=== PATIENT | female | born 1955 | race Native Hawaiian/Other Pacific Islander ===

== ENCOUNTER 2020-05-20 08:12 | Outpatient (CLI) | payer OTHER ==
[~2020-05-20] VITALS: Ht 157.5 cm; Wt 78.9 kg
== END 2020-05-20 19:08 | disposition home or self-care (01) ==
LOC: DIABINF 08:12
PROVIDERS: ATTEND Internal Medicine Endocrinology, Diabetes & Metabolism
DX: E11.65 Type 2 diabetes mellitus with hyperglycemia (principal); E11.42 Type 2 diabetes mellitus with diabetic polyneuropathy; I10 Essential (primary) hypertension; E78.2 Mixed hyperlipidemia; I25.10 Atherosclerotic heart disease of native coronary artery without angina pectoris; I73.89 Other specified peripheral vascular diseases; G89.4 Chronic pain syndrome; F41.1 Generalized anxiety disorder; F33.9 Major depressive disorder, recurrent, unspecified; M15.0 Primary generalized (osteo)arthritis; Z71.6 Tobacco abuse counseling; E66.8 Other obesity; Z68.31 Body mass index [BMI] 31.0-31.9, adult; K21.9 Gastro-esophageal reflux disease without esophagitis; Z95.1 Presence of aortocoronary bypass graft; I20.8 Other forms of angina pectoris
CPT/HCPCS: 82948; 96365; 96366; 96521; 99204; J1718; J1815

== ENCOUNTER 2020-05-21 07:41 | Outpatient (CLI) | payer OTHER ==
[~2020-05-21] VITALS: Ht 157.5 cm; Wt 78.9 kg
== END 2020-05-21 21:04 | disposition home or self-care (01) ==
LOC: DIABINF 07:41
PROVIDERS: ATTEND Internal Medicine Endocrinology, Diabetes & Metabolism
DX: E11.65 Type 2 diabetes mellitus with hyperglycemia (principal); E11.42 Type 2 diabetes mellitus with diabetic polyneuropathy; I10 Essential (primary) hypertension; E78.2 Mixed hyperlipidemia; I25.10 Atherosclerotic heart disease of native coronary artery without angina pectoris; I73.89 Other specified peripheral vascular diseases; G89.4 Chronic pain syndrome; F41.1 Generalized anxiety disorder; F33.9 Major depressive disorder, recurrent, unspecified; M15.0 Primary generalized (osteo)arthritis; Z71.6 Tobacco abuse counseling; E66.8 Other obesity; Z68.31 Body mass index [BMI] 31.0-31.9, adult; K21.9 Gastro-esophageal reflux disease without esophagitis; Z95.1 Presence of aortocoronary bypass graft; I20.8 Other forms of angina pectoris
CPT/HCPCS: 82948; 96365; 96366; 96521; 99214; J1718; J1815

== ENCOUNTER 2020-05-27 07:23 | Outpatient (CLI) | payer OTHER ==
[~2020-05-27] VITALS: Ht 157.5 cm; Wt 78.9 kg
== END 2020-05-27 19:38 | disposition home or self-care (01) ==
LOC: DIABINF 07:23
PROVIDERS: ATTEND Internal Medicine Endocrinology, Diabetes & Metabolism
DX: E11.65 Type 2 diabetes mellitus with hyperglycemia (principal); E11.42 Type 2 diabetes mellitus with diabetic polyneuropathy; I10 Essential (primary) hypertension; E78.2 Mixed hyperlipidemia; I25.118 Atherosclerotic heart disease of native coronary artery with other forms of angina pectoris; I73.89 Other specified peripheral vascular diseases; G89.4 Chronic pain syndrome; F41.1 Generalized anxiety disorder; F33.9 Major depressive disorder, recurrent, unspecified; M15.0 Primary generalized (osteo)arthritis; Z71.6 Tobacco abuse counseling; E66.8 Other obesity; Z68.31 Body mass index [BMI] 31.0-31.9, adult; K21.9 Gastro-esophageal reflux disease without esophagitis; Z95.1 Presence of aortocoronary bypass graft
CPT/HCPCS: 82948; 96365; 96366; 96521; 99214; J1718; J1815

== ENCOUNTER 2020-05-28 07:29 | Outpatient (CLI) | payer OTHER ==
[~2020-05-28] VITALS: Ht 157.5 cm; Wt 78.9 kg
== END 2020-05-28 20:57 | disposition home or self-care (01) ==
LOC: DIABINF 07:29
PROVIDERS: ATTEND Internal Medicine Endocrinology, Diabetes & Metabolism
DX: E11.65 Type 2 diabetes mellitus with hyperglycemia (principal); E11.42 Type 2 diabetes mellitus with diabetic polyneuropathy; I10 Essential (primary) hypertension; E78.2 Mixed hyperlipidemia; I25.118 Atherosclerotic heart disease of native coronary artery with other forms of angina pectoris; I73.89 Other specified peripheral vascular diseases; G89.4 Chronic pain syndrome; F41.1 Generalized anxiety disorder; F33.9 Major depressive disorder, recurrent, unspecified; M15.0 Primary generalized (osteo)arthritis; Z71.6 Tobacco abuse counseling; E66.8 Other obesity; Z68.31 Body mass index [BMI] 31.0-31.9, adult; K21.9 Gastro-esophageal reflux disease without esophagitis; Z95.1 Presence of aortocoronary bypass graft
CPT/HCPCS: 82948; 96365; 96366; 96521; 99214; J1718; J1815

== ENCOUNTER 2020-06-03 07:33 | Outpatient (CLI) | payer OTHER ==
[~2020-06-03] VITALS: Ht 157.5 cm; Wt 78.9 kg
== END 2020-06-03 19:22 | disposition home or self-care (01) ==
LOC: DIABINF 07:33
PROVIDERS: ATTEND Internal Medicine Endocrinology, Diabetes & Metabolism
DX: E11.65 Type 2 diabetes mellitus with hyperglycemia (principal); E11.42 Type 2 diabetes mellitus with diabetic polyneuropathy; I10 Essential (primary) hypertension; E78.2 Mixed hyperlipidemia; I25.118 Atherosclerotic heart disease of native coronary artery with other forms of angina pectoris; I73.89 Other specified peripheral vascular diseases; G89.4 Chronic pain syndrome; F41.1 Generalized anxiety disorder; F33.9 Major depressive disorder, recurrent, unspecified; M15.0 Primary generalized (osteo)arthritis; Z71.6 Tobacco abuse counseling; E66.8 Other obesity; Z68.31 Body mass index [BMI] 31.0-31.9, adult; K21.9 Gastro-esophageal reflux disease without esophagitis; Z95.1 Presence of aortocoronary bypass graft
CPT/HCPCS: 82948; 96365; 96366; 96521; 99214; J1718; J1815

== ENCOUNTER 2020-06-04 07:29 | Outpatient (CLI) | payer OTHER ==
[~2020-06-04] VITALS: Ht 157.5 cm; Wt 78.9 kg
== END 2020-06-04 20:12 | disposition home or self-care (01) ==
LOC: DIABINF 07:29
PROVIDERS: ATTEND Internal Medicine Endocrinology, Diabetes & Metabolism
DX: E11.65 Type 2 diabetes mellitus with hyperglycemia (principal); E11.40 Type 2 diabetes mellitus with diabetic neuropathy, unspecified; I10 Essential (primary) hypertension; E78.2 Mixed hyperlipidemia; I25.118 Atherosclerotic heart disease of native coronary artery with other forms of angina pectoris; I73.89 Other specified peripheral vascular diseases; G89.4 Chronic pain syndrome; F41.1 Generalized anxiety disorder; F33.9 Major depressive disorder, recurrent, unspecified; M15.0 Primary generalized (osteo)arthritis; Z71.6 Tobacco abuse counseling; E66.8 Other obesity; Z68.31 Body mass index [BMI] 31.0-31.9, adult; K21.9 Gastro-esophageal reflux disease without esophagitis; Z95.1 Presence of aortocoronary bypass graft
CPT/HCPCS: 82948; 96365; 96366; 96521; 99214; J1718; J1815

== ENCOUNTER 2020-06-11 07:37 | Outpatient (CLI) | payer OTHER ==
[~2020-06-11] VITALS: Ht 157.5 cm; Wt 78.9 kg
== END 2020-06-11 19:39 | disposition home or self-care (01) ==
LOC: DIABINF 07:37
PROVIDERS: ATTEND Internal Medicine Endocrinology, Diabetes & Metabolism
DX: E11.65 Type 2 diabetes mellitus with hyperglycemia (principal); E11.42 Type 2 diabetes mellitus with diabetic polyneuropathy; I10 Essential (primary) hypertension; E78.2 Mixed hyperlipidemia; I25.10 Atherosclerotic heart disease of native coronary artery without angina pectoris; I73.89 Other specified peripheral vascular diseases; F41.8 Other specified anxiety disorders; F32.89 Other specified depressive episodes; M15.0 Primary generalized (osteo)arthritis; Z71.6 Tobacco abuse counseling; Z68.31 Body mass index [BMI] 31.0-31.9, adult; Z95.1 Presence of aortocoronary bypass graft
CPT/HCPCS: 82948; 96365; 96366; 96521; 99214; J1815; J1817

== ENCOUNTER 2020-06-17 07:29 | Outpatient (CLI) | payer OTHER ==
[~2020-06-17] VITALS: Ht 157.5 cm; Wt 78.9 kg
== END 2020-06-17 21:23 | disposition home or self-care (01) ==
LOC: DIABINF 07:29
PROVIDERS: ATTEND Internal Medicine Endocrinology, Diabetes & Metabolism
DX: E11.65 Type 2 diabetes mellitus with hyperglycemia (principal); E11.42 Type 2 diabetes mellitus with diabetic polyneuropathy; I10 Essential (primary) hypertension; E78.2 Mixed hyperlipidemia; I25.118 Atherosclerotic heart disease of native coronary artery with other forms of angina pectoris; I73.89 Other specified peripheral vascular diseases; G89.4 Chronic pain syndrome; F41.1 Generalized anxiety disorder; F33.9 Major depressive disorder, recurrent, unspecified; M15.0 Primary generalized (osteo)arthritis; Z71.6 Tobacco abuse counseling; E66.8 Other obesity; Z68.31 Body mass index [BMI] 31.0-31.9, adult; K21.9 Gastro-esophageal reflux disease without esophagitis; Z95.1 Presence of aortocoronary bypass graft
CPT/HCPCS: 82948; 96365; 96366; 96521; J1815; J1817

== ENCOUNTER 2020-06-27 07:37 | Outpatient (CLI) | payer OTHER ==
[~2020-06-27] VITALS: Ht 157.5 cm; Wt 78.9 kg
== END 2020-06-27 21:41 | disposition home or self-care (01) ==
LOC: DIABINF 07:37
PROVIDERS: ATTEND Internal Medicine Endocrinology, Diabetes & Metabolism
DX: E11.65 Type 2 diabetes mellitus with hyperglycemia (principal); E11.40 Type 2 diabetes mellitus with diabetic neuropathy, unspecified; I10 Essential (primary) hypertension; E78.2 Mixed hyperlipidemia; I25.118 Atherosclerotic heart disease of native coronary artery with other forms of angina pectoris; I73.89 Other specified peripheral vascular diseases; G89.4 Chronic pain syndrome; F41.1 Generalized anxiety disorder; F33.0 Major depressive disorder, recurrent, mild; M15.0 Primary generalized (osteo)arthritis; Z71.6 Tobacco abuse counseling; E66.8 Other obesity; Z68.31 Body mass index [BMI] 31.0-31.9, adult; K21.9 Gastro-esophageal reflux disease without esophagitis; Z95.1 Presence of aortocoronary bypass graft
CPT/HCPCS: 82948; 96365; 96366; 96521; J1815; J1817

== ENCOUNTER 2020-07-09 07:37 | Outpatient (CLI) | payer OTHER ==
[~2020-07-09] VITALS: Ht 157.5 cm; Wt 78.9 kg
== END 2020-07-09 19:08 | disposition home or self-care (01) ==
LOC: DIABINF 07:37
PROVIDERS: ATTEND Internal Medicine Endocrinology, Diabetes & Metabolism
DX: E11.65 Type 2 diabetes mellitus with hyperglycemia (principal); E11.42 Type 2 diabetes mellitus with diabetic polyneuropathy; I10 Essential (primary) hypertension; E78.2 Mixed hyperlipidemia; I25.118 Atherosclerotic heart disease of native coronary artery with other forms of angina pectoris; I73.89 Other specified peripheral vascular diseases; G89.4 Chronic pain syndrome; F41.1 Generalized anxiety disorder; F33.0 Major depressive disorder, recurrent, mild; M15.0 Primary generalized (osteo)arthritis; Z71.6 Tobacco abuse counseling; E66.8 Other obesity; Z68.31 Body mass index [BMI] 31.0-31.9, adult; K21.9 Gastro-esophageal reflux disease without esophagitis; Z95.1 Presence of aortocoronary bypass graft
CPT/HCPCS: 82948; 96365; 96366; 96521; J1815; J1817

== ENCOUNTER 2020-07-15 07:44 | Outpatient (CLI) | payer OTHER ==
[~2020-07-15] VITALS: Ht 157.5 cm; Wt 78.9 kg
== END 2020-07-15 21:43 | disposition home or self-care (01) ==
LOC: DIABINF 07:44
PROVIDERS: ATTEND Internal Medicine Endocrinology, Diabetes & Metabolism
DX: E11.65 Type 2 diabetes mellitus with hyperglycemia (principal); E11.42 Type 2 diabetes mellitus with diabetic polyneuropathy; I10 Essential (primary) hypertension; E78.2 Mixed hyperlipidemia; I25.118 Atherosclerotic heart disease of native coronary artery with other forms of angina pectoris; I73.89 Other specified peripheral vascular diseases; G89.4 Chronic pain syndrome; F41.1 Generalized anxiety disorder; F33.0 Major depressive disorder, recurrent, mild; M15.0 Primary generalized (osteo)arthritis; Z71.6 Tobacco abuse counseling; E66.8 Other obesity; Z68.31 Body mass index [BMI] 31.0-31.9, adult; K21.9 Gastro-esophageal reflux disease without esophagitis; Z95.1 Presence of aortocoronary bypass graft
CPT/HCPCS: 82948; 96365; 96366; 96521; J1815; J1817

== ENCOUNTER 2020-07-22 08:04 | Outpatient (CLI) | payer OTHER ==
[~2020-07-22] VITALS: Ht 157.5 cm; Wt 78.9 kg
== END 2020-07-22 19:48 | disposition home or self-care (01) ==
LOC: DIABINF 08:04
PROVIDERS: ATTEND Nurse Practitioner
DX: E11.65 Type 2 diabetes mellitus with hyperglycemia (principal); E11.42 Type 2 diabetes mellitus with diabetic polyneuropathy; I10 Essential (primary) hypertension; E78.2 Mixed hyperlipidemia; I25.10 Atherosclerotic heart disease of native coronary artery without angina pectoris; I73.89 Other specified peripheral vascular diseases; F41.1 Generalized anxiety disorder; F33.8 Other recurrent depressive disorders; M15.0 Primary generalized (osteo)arthritis; Z71.6 Tobacco abuse counseling; F17.210 Nicotine dependence, cigarettes, uncomplicated
CPT/HCPCS: 82948; 96365; 96366; 96521; J1815; J1817

== ENCOUNTER 2020-07-29 07:57 | Outpatient (CLI) | payer OTHER ==
[~2020-07-29] VITALS: Ht 157.5 cm; Wt 78.9 kg
== END 2020-07-29 11:30 | disposition home or self-care (01) ==
LOC: DIABINF 07:57
PROVIDERS: ATTEND Nurse Practitioner
DX: E11.65 Type 2 diabetes mellitus with hyperglycemia (principal); E11.42 Type 2 diabetes mellitus with diabetic polyneuropathy; I10 Essential (primary) hypertension; E78.2 Mixed hyperlipidemia; I25.10 Atherosclerotic heart disease of native coronary artery without angina pectoris; I73.89 Other specified peripheral vascular diseases; F41.1 Generalized anxiety disorder; F33.8 Other recurrent depressive disorders; M15.0 Primary generalized (osteo)arthritis; Z71.6 Tobacco abuse counseling; F17.210 Nicotine dependence, cigarettes, uncomplicated
CPT/HCPCS: 82948; 96365; 96366; 96521; J1815; J1817

== ENCOUNTER 2020-08-08 07:41 | Outpatient (CLI) | payer OTHER ==
[~2020-08-08] VITALS: Ht 157.5 cm; Wt 78.9 kg
== END 2020-08-08 11:30 | disposition home or self-care (01) ==
LOC: DIABINF 07:41
PROVIDERS: ATTEND Nurse Practitioner
DX: E11.65 Type 2 diabetes mellitus with hyperglycemia (principal); E11.42 Type 2 diabetes mellitus with diabetic polyneuropathy; I10 Essential (primary) hypertension; E78.2 Mixed hyperlipidemia; I25.10 Atherosclerotic heart disease of native coronary artery without angina pectoris; I73.89 Other specified peripheral vascular diseases; F41.1 Generalized anxiety disorder; F33.8 Other recurrent depressive disorders; M15.0 Primary generalized (osteo)arthritis; Z71.6 Tobacco abuse counseling; F17.210 Nicotine dependence, cigarettes, uncomplicated
CPT/HCPCS: 82948; 96365; 96366; 96521; J1815; J1817

== ENCOUNTER 2020-08-13 07:56 | Outpatient (CLI) | payer OTHER ==
[~2020-08-13] VITALS: Ht 157.5 cm; Wt 78.9 kg
== END 2020-08-13 19:08 | disposition home or self-care (01) ==
LOC: DIABINF 07:56
PROVIDERS: ATTEND Internal Medicine Endocrinology, Diabetes & Metabolism
DX: E11.65 Type 2 diabetes mellitus with hyperglycemia (principal); E11.42 Type 2 diabetes mellitus with diabetic polyneuropathy; I10 Essential (primary) hypertension; E78.2 Mixed hyperlipidemia; I25.10 Atherosclerotic heart disease of native coronary artery without angina pectoris; I73.89 Other specified peripheral vascular diseases; F41.1 Generalized anxiety disorder; F33.8 Other recurrent depressive disorders; M15.0 Primary generalized (osteo)arthritis; Z71.6 Tobacco abuse counseling; F17.210 Nicotine dependence, cigarettes, uncomplicated
CPT/HCPCS: 82948; 96365; 96366; 96521; J1815; J1817

== ENCOUNTER 2020-08-21 08:48 | Outpatient (CLI) | payer OTHER | END 2020-08-21 21:27 | disposition home or self-care (01) | LOC: DIABINF 08:48 | PROVIDERS: ATTEND Internal Medicine Endocrinology, Diabetes & Metabolism | DX: E11.65 Type 2 diabetes mellitus with hyperglycemia (principal); E11.42 Type 2 diabetes mellitus with diabetic polyneuropathy; I10 Essential (primary) hypertension; E78.2 Mixed hyperlipidemia; I73.89 Other specified peripheral vascular diseases; F41.1 Generalized anxiety disorder; F33.8 Other recurrent depressive disorders; M15.0 Primary generalized (osteo)arthritis; Z71.6 Tobacco abuse counseling; F17.210 Nicotine dependence, cigarettes, uncomplicated | CPT/HCPCS: 82948; 96365; 96366; 96521; J1817 ==

== ENCOUNTER 2020-08-21 13:33 | Outpatient (CLI) | payer OTHER ==
[2020-08-21 13:56] LABS: PLATELET COUNT 313 K/uL (152-353)
[2020-08-21 14:11] LABS: POTASSIUM 3.9 mmol/L (3.6-5.2)
== END 2020-08-21 21:41 | disposition home or self-care (01) ==
LOC: LAB 13:33
PROVIDERS: ATTEND Internal Medicine Endocrinology, Diabetes & Metabolism
DX: E11.65 Type 2 diabetes mellitus with hyperglycemia (principal); E78.2 Mixed hyperlipidemia; I73.9 Peripheral vascular disease, unspecified; I10 Essential (primary) hypertension; E66.9 Obesity, unspecified; F41.8 Other specified anxiety disorders
CPT/HCPCS: 80053; 80061; 82306; 83036; 83525; 84681; 85027

== ENCOUNTER 2020-08-26 07:55 | Outpatient (CLI) | payer OTHER ==
[~2020-08-26] VITALS: Ht 157.5 cm; Wt 78.9 kg
== END 2020-08-26 19:17 | disposition home or self-care (01) ==
LOC: DIABINF 07:55
PROVIDERS: ATTEND Internal Medicine Endocrinology, Diabetes & Metabolism
DX: E11.65 Type 2 diabetes mellitus with hyperglycemia (principal); E11.42 Type 2 diabetes mellitus with diabetic polyneuropathy; I10 Essential (primary) hypertension; E78.2 Mixed hyperlipidemia; I73.89 Other specified peripheral vascular diseases; F41.1 Generalized anxiety disorder; F33.8 Other recurrent depressive disorders; M15.0 Primary generalized (osteo)arthritis; Z71.6 Tobacco abuse counseling; F17.210 Nicotine dependence, cigarettes, uncomplicated
CPT/HCPCS: 82948; 96365; 96366; 96521; J1815; J1817

== ENCOUNTER 2020-09-03 07:54 | Outpatient (CLI) | payer OTHER ==
[~2020-09-03] VITALS: Ht 157.5 cm; Wt 78.9 kg
== END 2020-09-03 20:31 | disposition home or self-care (01) ==
LOC: DIABINF 07:54
PROVIDERS: ATTEND Nurse Practitioner
DX: E11.65 Type 2 diabetes mellitus with hyperglycemia (principal); E11.42 Type 2 diabetes mellitus with diabetic polyneuropathy; I10 Essential (primary) hypertension; E78.2 Mixed hyperlipidemia; I25.10 Atherosclerotic heart disease of native coronary artery without angina pectoris; I73.89 Other specified peripheral vascular diseases; G89.4 Chronic pain syndrome; F41.1 Generalized anxiety disorder; F33.0 Major depressive disorder, recurrent, mild; M15.0 Primary generalized (osteo)arthritis; Z71.6 Tobacco abuse counseling; E66.8 Other obesity; Z68.31 Body mass index [BMI] 31.0-31.9, adult; K21.9 Gastro-esophageal reflux disease without esophagitis; Z95.1 Presence of aortocoronary bypass graft; I20.8 Other forms of angina pectoris
CPT/HCPCS: 82948; 96365; 96366; 96521; J1815; J1817

== ENCOUNTER 2020-09-09 07:57 | Outpatient (CLI) | payer OTHER ==
[~2020-09-09] VITALS: Ht 157.5 cm; Wt 78.9 kg
== END 2020-09-09 22:35 | disposition home or self-care (01) ==
LOC: DIABINF 07:57
PROVIDERS: ATTEND Nurse Practitioner
DX: E11.65 Type 2 diabetes mellitus with hyperglycemia (principal); E11.42 Type 2 diabetes mellitus with diabetic polyneuropathy; I10 Essential (primary) hypertension; E78.2 Mixed hyperlipidemia; I25.10 Atherosclerotic heart disease of native coronary artery without angina pectoris; I73.89 Other specified peripheral vascular diseases; G89.4 Chronic pain syndrome; F41.1 Generalized anxiety disorder; F33.0 Major depressive disorder, recurrent, mild; M15.0 Primary generalized (osteo)arthritis; Z71.6 Tobacco abuse counseling; E66.8 Other obesity; Z68.31 Body mass index [BMI] 31.0-31.9, adult; K21.9 Gastro-esophageal reflux disease without esophagitis; Z95.1 Presence of aortocoronary bypass graft; I20.8 Other forms of angina pectoris
CPT/HCPCS: 82948; 96365; 96366; 96521; J1815; J1817

== ENCOUNTER 2020-09-25 08:07 | Outpatient (CLI) | payer OTHER ==
[~2020-09-25] VITALS: Ht 157.5 cm; Wt 82.1 kg
== END 2020-09-25 21:07 | disposition home or self-care (01) ==
LOC: DIABINF 08:07
PROVIDERS: ATTEND Nurse Practitioner
DX: E11.65 Type 2 diabetes mellitus with hyperglycemia (principal); Z87.898 Personal history of other specified conditions; M79.7 Fibromyalgia; I10 Essential (primary) hypertension; E78.2 Mixed hyperlipidemia; K21.9 Gastro-esophageal reflux disease without esophagitis
CPT/HCPCS: 82948; 96365; 96366; 96521; J1815; J1817

== ENCOUNTER 2020-09-30 07:55 | Outpatient (CLI) | payer OTHER ==
[~2020-09-30] VITALS: Ht 157.5 cm; Wt 82.1 kg
== END 2020-09-30 21:42 | disposition home or self-care (01) ==
LOC: DIABINF 07:55
PROVIDERS: ATTEND Nurse Practitioner
DX: E11.65 Type 2 diabetes mellitus with hyperglycemia (principal); Z87.898 Personal history of other specified conditions; M79.7 Fibromyalgia; I10 Essential (primary) hypertension; E78.2 Mixed hyperlipidemia; K21.9 Gastro-esophageal reflux disease without esophagitis
CPT/HCPCS: 82948; 96365; 96366; 96521; J1815; J1817

== ENCOUNTER 2020-10-07 12:59 | Outpatient (CLI) | payer OTHER ==
[~2020-10-07] VITALS: Ht 157.5 cm; Wt 78.9 kg
== END 2020-10-07 21:17 | disposition home or self-care (01) ==
LOC: DIABINF 12:59
PROVIDERS: ATTEND Nurse Practitioner
DX: E11.65 Type 2 diabetes mellitus with hyperglycemia (principal); Z87.898 Personal history of other specified conditions; M79.7 Fibromyalgia; I10 Essential (primary) hypertension; E78.2 Mixed hyperlipidemia; K21.9 Gastro-esophageal reflux disease without esophagitis
CPT/HCPCS: 82948; 96365; 96366; 96521; J1815; J1817